=== PATIENT | female | born 2005 | race American Indian/Alaskan Native ===

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

== ENCOUNTER 2024-03-22 02:53 | Emergency (ER) | payer SELFPAY ==
[2024-03-22 04:00] LABS: BASOPHILS PERCENT AUTO 0.1 % (0.0-1.0); HEMOGLOBIN 12.7 g/dL (12.0-16.0); LYMPHOCYTES PERCENT AUTO 28.9 % (20.5-50.1); MEAN CORPUSCULAR HEMOGLOBIN 29.1 pg (27.0-34.0); MEAN CORPUSCULAR HGB CONC 34.3 g/dL (33.0-35.0); MEAN CORPUSCULAR VOLUME 84.9 fL (80-100); MONOCYTES PERCENT AUTO 6.4 % (2-8); NEUTROPHILS PERCENT AUTO 64.6 % (42.2-75.2); PLATELET COUNT,PLT 371 10^3/uL (150-450); RED BLOOD CELL COUNT 4.36 10^6/uL (4.2-5.4)
[2024-03-22 04:22] LABS: A/G RATIO 0.9; ALANINE AMINOTRANSFERASE,ALT 37 U/L (14-59); ALKALINE PHOSPHATASE 123 U/L (46-116); ANION GAP 9.1 mEq/L (7-13); ASPARTATE AMNIOTRANSFERASE,AST 12 U/L (15-37); BILIRUBIN TOTAL 0.6 mg/dL (0.2-1.0); BLOOD UREA NITROGEN,BUN 13 mg/dL (7-18); BUN/CREATININE RATIO 19.1 (No establ ref range); C-REACTIVE PROTEIN 0.52 ng/dL (<=0.50); CALCIUM 9.2 mg/dL (8.5-10.1); CARBON DIOXIDE,CO2 26 mmol/L (21-32); CHLORIDE,CL 102 mmol/L (98-107); CREATININE 0.68 mg/dL (0.55-1.02); EST CRCL DRUG DOSING (CG) 108.26 mL/min; GLUCOSE RANDOM 108 mg/dL (70-99); POTASSIUM,K 4.1 mmol/L (3.5-5.1); PROTEIN TOTAL,TP 8.3 g/dL (6.4-8.2); SODIUM,NA 133 mmol/L (136-145)
[2024-03-22 04:23] LABS: ESTIMATED GFR 127 mL/min (>=60)
[2024-03-22 04:24] LABS: HCG QUALITATIVE,SERUM NEGATIVE (NEGATIVE)
[2024-03-22] MEDS ORDERED: diphenhydrAMINE 50 MG Cap PO ONE (04:25)
[2024-03-22] MEDS ORDERED: Ketorolac 30 MG/ML SDV IM ONE (04:26)
[2024-03-22] MEDS ORDERED: Metoclopramide 10 MG Tab PO ONE (04:26)
[2024-03-22] MEDS: Metoclopramide 10 MG/2 ML SDV IVPUSH ONE (04:32)
[2024-03-22] MEDS: Ketorolac 30 MG/ML SDV IVPUSH ONE (04:35)
[2024-03-22] MEDS: diphenhydrAMINE 50 MG/ML SDV IVPUSH ONE (04:37)
[2024-03-22 04:48] VITALS: BP 126/71; PULSE 79
== END 2024-03-22 04:48 | disposition home or self-care (01) ==
LOC: DL.ED 02:53
DX: G43.009 Migraine without aura, not intractable, without status migrainosus (principal); E66.9 Obesity, unspecified; Z68.37 Body mass index [BMI] 37.0-37.9, adult
CPT/HCPCS: 36415; 80053; 84703; 85025; 86140; 96374; 96375; 99284; J1200; J1885; J2765; 99283